=== PATIENT | male | born 1955 | race African-American/Black ===

== ENCOUNTER 2017-01-06 18:21 | Emergency (ER) | payer OTHER ==
--- NOTE | 2017-01-06 18:26 | ER Document Report ---
ED General - General Stated Complaint: LOWER EXTREMITY CRAMPING Time Seen by Provider: 01/06/17 18:25 Cannot obtain history due to: Altered mental status, Other - Severely ill in appearance Notes: Patient is a 61-year-old male without past medical history who presents after having to be pulled out of his vehicle in the parking lot after having a near syncopal episode. 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 She states that in the car ride patient became somewhat confused, diaphoretic, ill in appearance so she brought him to the emergency department. On arrival he was so weak he was unable to out of the vehicle so staff had to assist him out of the vehicle and carry him into a stretcher. History is otherwise limited at time of presentation as patient is somewhat lethargic, very diaphoretic and ill in appearance mandating rapid assessment. His at the bedside does report that he has had similar episodes in the past secondary to severe dehydration. Past Medical History - General Information source: Relative - Social History Smoking Status: Never Smoker Frequency of alcohol use: None Drug Abuse: None Lives with: Spouse/Significant other Family History: Reviewed & Not Pertinent Review of Systems - Review of Systems Notes: Constitutional: Negative for fever. HENT: Negative for sore throat. Eyes: Negative for visual changes. Cardiovascular: Negative for chest pain. Respiratory: Negative for shortness of breath. Gastrointestinal: Positive for nausea Genitourinary: Negative for dysuria. Musculoskeletal: Positive for bilateral lower extremity cramping Skin: Negative for rash. Neurological: Negative for headaches, weakness or numbness. 10 point ROS negative except as marked above and in HPI. Physical Exam - Vital signs Vitals: Resp Pulse Ox 13 98 01/06/17 18:31 01/06/17 18:31 Interpretation: Tachycardic Notes: PHYSICAL EXAMINATION: GENERAL: Ill in appearance, diaphoretic, lying flat on stretcher. Takes a prolonged period of time to answer questions. HEAD: Atraumatic, normocephalic. EYES: Pupils equal round and reactive to light, extraocular movements intact, sclera anicteric, conjunctiva are normal. ENT: nares patent, oropharynx clear without exudates. Extremely dry mucous membranes. NECK: Normal range of motion, supple without lymphadenopathy LUNGS: Breath sounds clear to auscultation bilaterally and equal. No wheezes rales or rhonchi. HEART: Regular tachycardia without murmurs ABDOMEN: Soft, nontender, normoactive bowel sounds. No guarding, no rebound. No masses appreciated. EXTREMITIES: Normal range of motion, no pitting or edema. No cyanosis. NEUROLOGICAL: No focal neurological deficits. Moves all extremities spontaneously and on command. PSYCH: somewhat lethargic SKIN: Warm, diffuse diaphoresis, poor turgor, no rashes or lesions noted. Course - Re-evaluation Re-evalutation: 01/06/17 18:25 Patient is a 61-year-old male who presents after having a near syncopal episode while in his vehicle coming into the emergency department. Patient reports he has been out in the heat all day, welding. He arrives very ill in appearance, diaphoretic, tachypneic, somewhat altered. IV access was immediately established in the bilateral antecubital fossa and 2 L of normal saline were opened. EKG does not show any ischemic changes and patient denies any symptoms other than bilateral lower externa cramping and lightheadedness. Suspect clinically significant dehydration secondary to being out in the heat all day. Will obtain laboratories, continue IV fluids and reassess frequently. 01/06/17 18:53 Patient appears much improved at this time, sitting up in bed now talking with family. Vital signs are returning to normal he is no longer hypotensive or tachycardic. Core temperature is normal at this time at 98.5F. states his cramping is much improved and he no longer feels like he is about syncopize. 01/06/17 19:34 Patient's laboratories do show mild acute kidney injury as well as rhabdomyolysis but are otherwise unremarkable beyond showing findings consistent with acute dehydration. Patient continues to feel much improved after receiving 2 L of normal saline, is tolerating oral intake, states he feels overall back to his baseline. He is stable for discharge at this time. At this time will discharge with return precautions and follow-up recommendations. Verbal discharge instructions given a the bedside and opportunity for questions given. Medication warnings reviewed. Patient is in agreement with this plan and has verbalized understanding of return precautions and the need for primary care follow-up in the next 24-72 hours. - Vital Signs Vital signs: Temp Pulse Resp BP Pulse Ox 15 146/83 H 96 01/06/17 20:01 01/06/17 20:00 01/06/17 20:01 - Laboratory Result Diagrams: 01/06/17 18:25 01/06/17 18:25 Laboratory results interpreted by me: 01/06/17 01/06/17 01/06/17 18:25 18:25 18:41 Hgb 17.6 H Hct 51.1 H Lymphocytes % 45.7 H VBG HCO3 19.4 L Sodium 149.0 H Carbon Dioxide 19 L Anion Gap 27 H BUN 27 H Creatinine 1.86 H Est GFR ( Amer) 45 L Est GFR (Non-Af Amer) 37 L Calcium 12.4 H* Direct Bilirubin 0.5 H Creatine Kinase 833 H Total Protein 10.6 H Albumin 5.7 H - EKG Interpretation by Me Additional EKG results interpreted by me: 01/06/17 18:55 Sinus rhythm. Rate 62. No ST elevations or depressions. QTC is 431. Critical Care Note - Critical Care Note Total time excluding time spent on procedures (mins): 35 Comments: Critical care time spent obtaining history from patient or surrogate, discussions with consultants, development of treatment plan with patient or surrogate, evaluation of patient's response to treatment, examination of patient , ordering and performing treatments and interventions, ordering and review of laboratory studies, re-evaluation of patient's condition, ordering and review of radiographic studies and review of old charts Discharge - Discharge Clinical Impression: Acute kidney injury, Dehydration Condition: Stable Disposition: HOME, SELF-CARE Additional Instructions: Please be sure to drink plenty of fluids while out in the heat. You can purchase packets of electrolyte replacement solutions such as Pedialyte or propel that you can add to plain water. This will help to make sure that you are getting adequate electrolytes in addition to fluids while working outside. Please return to the emergency department if you pass out, developed diffuse muscle cramping, have persistent vomiting, or have any other symptoms that are worrisome to you.
[2017-01-06] MEDS ORDERED: NORMAL SALINE 1000 ML 2,000 ML IV ONE (18:27)
[2017-01-06 18:41] LABS: ABSOLUTE EOSINOPHILS # (AUTO) 0.1 10^3/uL (0.0-0.6); ABSOLUTE LYMPHOCYTES (AUTO) 3.4 10^3/uL (0.5-4.7); ABSOLUTE MONOCYTES (AUTO) 0.6 10^3/uL (0.1-1.4); ABSOLUTE NEUT (AUTO) 3.3 10^3/uL (1.7-8.2); BASOPHILS % (AUTO) 0.7 % (0-2); EOSINOPHILS % (AUTO) 1.5 % (0-6); HEMATOCRIT 51.1 % (37.9-51.0); HEMOGLOBIN 17.6 g/dL (13.5-17.0); HGB HCT DIFFERENCE 1.7; LYMPHOCYTES % (AUTO) 45.7 % (13-45); MEAN CORPUSCULAR HEMOGLOBIN 32.1 pg (27.0-33.4); MEAN CORPUSCULAR HGB CONC 34.4 g/dL (32.0-36.0); MEAN CORPUSCULAR VOLUME 93 fl (80-97); MONOCYTES % (AUTO) 8.1 % (3-13); RED BLOOD COUNT 5.49 10^6/uL (4.35-5.55); RED CELL DISTRIBUTION WIDTH 13.9 % (11.5-14.0); WHITE BLOOD COUNT 7.5 10^3/uL (4.0-10.5)
[2017-01-06 18:51] LABS: VENOUS BLOOD BASE EXCESS -6.6 mmol/L; VENOUS BLOOD HCO3 19.4 mmol/L (20-32); VENOUS BLOOD PCO2 40.5 mmHg (35-63); VENOUS BLOOD PH 7.3 (7.30-7.42)
[2017-01-06 18:56] LABS: ALANINE AMINOTRANSFERASE 52 U/L (21-72); ALBUMIN 5.7 g/dL (3.5-5.0); ALKALINE PHOSPHATASE 96 U/L (38-126); ASPARTATE AMINO TRANSFERASE 46 U/L (17-59); BILIRUBIN,DIRECT 0.5 mg/dL (0.0-0.4); BLOOD UREA NITROGEN 27 mg/dL (7-20); CREATINE KINASE 833 U/L (55-170); CREATININE RESULT 1.86 mg/dL (0.52-1.25); GLUCOSE 98 mg/dL (75-110); TOTAL PROTEIN 10.6 g/dL (6.3-8.2)
[2017-01-06 19:06] LABS: ANION GAP 27 (5-19); CHLORIDE 103 mmol/L (98-107); POTASSIUM 4.3 mmol/L (3.6-5.0)
[2017-01-06 19:07] LABS: CARBON DIOXIDE 19 mmol/L (22-30)
[2017-01-06 19:08] LABS: CALCIUM 12.4 mg/dL (8.4-10.2)
[2017-01-06 20:10] VITALS: BP 146/83
--- NOTE | 2017-01-06 21:58 | EKG REPORT ---
SEVERITY:- OTHERWISE NORMAL ECG - SINUS RHYTHM MINIMAL ST ELEVATION, ANTERIOR LEADS PROBABLE LVH RELATED : Confirmed by: Mary Piper 06-Jan-2017 21:57:30
== END 2017-01-06 20:10 | disposition home or self-care (01) ==
LOC: ER 18:21
DX: E86.0 Dehydration (principal); N17.9 Acute kidney failure, unspecified; R55 Syncope and collapse; M62.82 Rhabdomyolysis; R61 Generalized hyperhidrosis; R41.0 Disorientation, unspecified; R11.0 Nausea; R00.0 Tachycardia, unspecified; R06.82 Tachypnea, not elsewhere classified
CPT/HCPCS: 93005; 99285; 96360; 36415; 82962; 82550; 85025; 80053; 82803; 93010; J7030